=== PATIENT | male | born 1980 | race African-American/Black ===

== ENCOUNTER 2022-03-08 20:26 | Emergency (ER) | payer OTHER ==
[2022-03-08 20:47] VITALS: BP 122/58; BMI 36.9
[2022-03-08] MEDS ORDERED: IBUPROFEN 600 MG TABLET (FP) PO ONE ×2 (23:04→23:15)
[2022-03-08] MEDS ORDERED: ACETAMINOPHEN 325 MG TABLET (FP) PO ONE (23:04)
[2022-03-08] MEDS ORDERED: ACETAMINOPHEN 325 MG TABLET (FP) ONE (23:15)
[2022-03-08 23:53] VITALS: PULSE 100; TEMP 101
== END 2022-03-08 23:53 | disposition home or self-care (01) ==
LOC: JER 20:26
DX: U07.1 COVID-19 (principal)
CPT/HCPCS: 0241U-QW; 99283-25